=== PATIENT | female | born 1985 | race Two or more races ===

== ENCOUNTER 2022-08-15 18:54 | Emergency (ER) | payer MEDICAID, OTHER ==
[~2022-08-15] VITALS: Ht 154.9 cm; Wt 59.7 kg
[2022-08-15 19:44] VITALS: BP 128/83
== END 2022-08-16 02:35 | disposition left against medical advice (07) ==
LOC: ER 18:54
DX: R22.0 Localized swelling, mass and lump, head (principal); Z53.21 Procedure and treatment not carried out due to patient leaving prior to being seen by health care provider